=== PATIENT | female | born 1955 | race Caucasian/White ===

== ENCOUNTER → 2017-05-12 | Outpatient (CLI) | payer BC ==
[~2017-05-12] MED LIST: ASPIRIN 32325 MG/TAB PO; ASPIRIN 81M81 MG/TA2 PO; ASPIRIN E.C. 8181 MG PO; BYSTOLIC5 MG PO; CRESTOR 10MG10 MG PO; DIABETA 5MG5 MG/TAB PO; EFFIENT10 MG PO; FLAX SEED OIL1000 MG PO; GLIPIZIDE XL5 MG PO; GLUCOVANCE 2.51 TAB PO; HCTZ; JANUVIA25 MG PO; JANUVIA50 MG PO; LEVOTHROID0.025 MG PO; LEVOXYL0.1 MG PO; LOPRESSOR 225 MG/TAB PO; MECLIZINE25 MG PO; METFORMIN500 MG PO; NITROSTAT0.4 MG/TAB SL; NORCO 325 MG-51 TAB PO; PLAVIX 75MG TAB75 MG PO; PRILOTC PO; SYNTHROID0.075 MG/T PO; ULTRAM 50MG TAB50 MG PO; VALIUM 2MG T2 MG/TAB PO; XANAX 0.5MG0.5 MG PO; ZOFRAN 4MG T4 MG/TAB PO
== END ==
LOC: MC.RAD 10:20
DX: Z12.31 Encounter for screening mammogram for malignant neoplasm of breast (principal)

== ENCOUNTER 2017-06-06 15:45 | Outpatient (RCR) | payer BC ==
[2017-06-10] MEDS ORDERED: GLUCOVANCE 2.51 TAB PO (07:01)
[2017-06-10] MEDS ORDERED: JANUVIA50 MG PO (07:02)
[2017-06-10] MEDS ORDERED: MAGNESIUM250 M1 PO (07:02)
[2017-06-10] MEDS ORDERED: SYNTHROID0.075 MG/T PO (07:02)
[2017-06-10] MEDS ORDERED: MULTI VITAMINS1 TAB PO (07:03)
[2017-06-10] MEDS ORDERED: ASPIRIN 81M81 MG/TA2 PO (07:04)
[2017-06-10] MEDS ORDERED: XANAX .25M0.25 MG/TA PO (07:04)
[2017-06-10] MEDS ORDERED: VITAMINE200 PO (07:04)
[2017-06-10] MEDS ORDERED: BYSTOLIC5 MG PO (07:05)
[2017-06-10] MEDS ORDERED: LIPITOR 10MG10 MG PO (07:05)
[2017-06-10] MEDS ORDERED: PLAVIX 75MG TAB75 MG PO (07:06)
[2017-06-10] MEDS ORDERED: FLAX OIL1000 MG PO (07:06)
== END 2017-08-18 ==
LOC: MKS.ESL.PT
DX: M54.5 Low back pain (principal); Z98.890 Other specified postprocedural states

== ENCOUNTER 2017-06-10 06:01 | Day surgery (SDC) | payer BC ==
[~2017-06-10] VITALS: Ht 160 cm; Wt 68.8 kg
[2017-06-10 06:51] VITALS: BP 144/55; PULSE 54; TEMP 97.8
[2017-06-10] MEDS ORDERED: GLUCOVANCE 2.51 TAB PO (07:01)
[2017-06-10] MEDS ORDERED: SYNTHROID0.075 MG/T PO (07:02)
[2017-06-10] MEDS ORDERED: MAGNESIUM250 M1 PO (07:02)
[2017-06-10] MEDS ORDERED: JANUVIA50 MG PO (07:02)
[2017-06-10] MEDS ORDERED: MULTI VITAMINS1 TAB PO (07:03)
[2017-06-10] MEDS ORDERED: VITAMINE200 PO (07:04)
[2017-06-10] MEDS ORDERED: XANAX .25M0.25 MG/TA PO (07:04)
[2017-06-10] MEDS ORDERED: ASPIRIN 81M81 MG/TA2 PO (07:04)
[2017-06-10] MEDS ORDERED: BYSTOLIC5 MG PO (07:05)
[2017-06-10] MEDS ORDERED: LIPITOR 10MG10 MG PO (07:05)
[2017-06-10] MEDS ORDERED: PLAVIX 75MG TAB75 MG PO (07:06)
[2017-06-10] MEDS ORDERED: FLAX OIL1000 MG PO (07:06)
[2017-06-10 07:40] VITALS: BP 142/72; PULSE 66; TEMP 97.6
[2017-06-10 07:45] VITALS: BP 141/66; PULSE 64
[2017-06-10 08:00] VITALS: BP 136/82; PULSE 60
[2017-06-10 08:15] VITALS: BP 127/61; PULSE 55
== END 2017-06-10 08:25 | disposition home or self-care (01) ==
LOC: SDCO 06:01
DX: Z12.11 Encounter for screening for malignant neoplasm of colon (principal); E11.9 Type 2 diabetes mellitus without complications; I10 Essential (primary) hypertension; E03.9 Hypothyroidism, unspecified; K75.81 Nonalcoholic steatohepatitis (NASH); Z90.710 Acquired absence of both cervix and uterus
CPT/HCPCS: J2250; J3010; J7042

== ENCOUNTER → 2018-02-14 | Outpatient (CLI) | payer BC ==
[~2018-02-14] MED LIST changes: +CARAFATE 1GM1 G PO; +FLAX OIL1000 MG PO; +LEXAPRO 5MG5 MG PO; +LIPITOR20 MG PO; +MAGNESIUM ELEM300 MG PO; +MULTI VITAMINS1 TAB PO; +MYCOGEN CR 30GM TP; +PERCOCET 325 MG1 TA2 PO; +PROTONIX 40MG T40 MG PO; +VITAMINE200 PO; +XANAX .25M0.25 MG/TA PO
== END ==
LOC: COL.RAD 08:05
DX: K76.0 Fatty (change of) liver, not elsewhere classified (principal)

== ENCOUNTER 2018-02-15 02:05 | Emergency (ER) | payer BC ==
[~2018-02-15] VITALS: Ht 162.6 cm; Wt 67.7 kg
[~2018-02-15 02:05] MED LIST changes: -CARAFATE 1GM1 G PO; -LEXAPRO 5MG5 MG PO; -MYCOGEN CR 30GM TP; -PERCOCET 325 MG1 TA2 PO; -PROTONIX 40MG T40 MG PO
[2018-02-15 02:07] VITALS: TEMP 99.1
[2018-02-15] MEDS ORDERED: LEXAPRO 5MG5 MG PO (02:29)
[2018-02-15] MEDS ORDERED: MYCOGEN CR 30GM TP (02:31)
[2018-02-15 02:43] LABS: COLLECTION METHOD CLEAN CATCH
[2018-02-15 02:47] LABS: HEMATOCRIT 41.5 % (37.0-47.0); HEMOGLOBIN 13.4 g/dl (12.5-16.0); MEAN CELL VOLUME 83 fl (80.0-100.0); MEAN CORPUSCULAR HEMOGLOBIN 27 pg (27.0-31.0); MEAN CORPUSCULAR HGB CONC 32 g/dl (33.0-37.0); MEAN PLATELET VOLUME 10.3 fl (7.4-10.4); PLATELET COUNT 246 K/mm3 (130-400); RED BLOOD COUNT 5.01 M/mm3 (4.10-5.30); REDCELL DISTRIBUTION WIDTH-CV 13.6 % (11.5-14.5)
[2018-02-15] MEDS ORDERED: PROTONIX 40MG T40 MG PO (02:49)
[2018-02-15] MEDS ORDERED: CARAFATE 1GM1 G PO (02:49)
[2018-02-15 02:50] LABS: MUCOUS Present /lpf; PH 5 (5-8); SQUAMOUS EPITHELIAL 0-2 /hpf; URINE APPEARANCE Clear; URINE BACTERIA Rare /hpf; URINE BILIRUBIN Negative (NEGATIVE); URINE BLOOD Negative (NEGATIVE); URINE COLOR Yellow; URINE GLUCOSE Negative (NEGATIVE); URINE KETONE Negative (NEGATIVE); URINE LEUKOCYTE ESTERASE Negative (NEGATIVE); URINE NITRATE Negative (NEGATIVE); URINE PROTEIN(semi-quant) Negative (NEGATIVE); URINE RBC 0-2 /hpf; URINE UROBILINOGEN Negative (NEGATIVE)
[2018-02-15 03:00] LABS: ALANINE AMINOTRANSFERASE 25 U/L (9-52); ALBUMIN 3.8 gm/dL (3.5-5.0); ALKALINE PHOSPHATASE 69 U/L (50-136); ANION GAP 10 mmol/L (7-16); AST,SGOT 25 U/L (15-37); BILIRUBIN,TOTAL 0.5 mg/dL (0.0-1.0); BLOOD UREA NITROGEN 10 mg/dL (7-17); C-REACTIVE PROTEIN 0.7 mg/dL (0.0-0.9); CALCIUM 9.3 mg/dL (8.4-10.2); CARBON DIOXIDE 26 mmol/L (22-30); CHLORIDE 102 mmol/L (98-107); CREATININE, serum 0.54 mg/dL (0.52-1.25); GLUCOSE 185 mg/dL (74-106); LIPASE 188 U/L (23-300); MAGNESIUM 1.8 mg/dL (1.6-2.3); PHOSPHOROUS 3.6 mg/dL (2.5-4.5); SODIUM 138 mmol/L (137-145); TOTAL PROTEIN 6.8 gm/dL (6.4-8.2)
[2018-02-15 03:13] LABS: TROPONIN-I < 0.012 ng/mL (0.000-0.034)
[2018-02-15 03:19] LABS: BAND 5 % (0-10); EOSINOPHIL 9 % (0-4); LYMPHOCYTE 23 % (20.0-51.0); NEUTROPHILS 58 % (42.0-75.2); PLATELET ESTIMATE NORMAL (NORMAL)
[2018-02-15] MEDS ORDERED: PERCOCET 325 MG1 TA2 PO (04:29)
[2018-02-15 04:42] VITALS: BP 188/78; PULSE 54
== END 2018-02-15 04:46 | disposition home or self-care (01) ==
LOC: COL.ER 02:05
PROVIDERS: Emergency Medicine
DX: R10.13 Epigastric pain (principal); I25.10 Atherosclerotic heart disease of native coronary artery without angina pectoris; E11.9 Type 2 diabetes mellitus without complications; I10 Essential (primary) hypertension; E78.5 Hyperlipidemia, unspecified; Z95.5 Presence of coronary angioplasty implant and graft; Z90.710 Acquired absence of both cervix and uterus; Z79.84 Long term (current) use of oral hypoglycemic drugs; Z79.82 Long term (current) use of aspirin
CPT/HCPCS: J2405; J7030; Q9967

== ENCOUNTER 2018-02-17 10:47 | Day surgery (SDC) | payer BC ==
[~2018-02-17] VITALS: Ht 160 cm; Wt 67.0 kg
[~2018-02-17 10:47] MED LIST changes: +CARAFATE 1GM1 G PO; +LEXAPRO 5MG5 MG PO; +MYCOGEN CR 30GM TP; +PERCOCET 325 MG1 TA2 PO; +PROTONIX 40MG T40 MG PO
[2018-02-17] MEDS ORDERED: PERCOCET 325 MG1 TA2 PO (11:40)
[2018-02-17] MEDS ORDERED: ASPIRIN 81M81 MG/TA2 PO (11:46)
[2018-02-17 11:49] VITALS: BP 141/64; PULSE 50; TEMP 98.4
[2018-02-17 12:48] VITALS: BP 123/58; PULSE 54; TEMP 98.3
[2018-02-17 13:00] VITALS: BP 127/67; PULSE 55
[2018-02-17 13:15] VITALS: BP 120/55; PULSE 57
[2018-02-17] MEDS ORDERED: CARAFATE 1GM1 G PO (13:28)
[2018-02-17 13:30] VITALS: BP 113/49; PULSE 50
[2018-02-17 13:47] VITALS: BP 135/67; PULSE 53
== END 2018-02-17 13:50 | disposition home or self-care (01) ==
LOC: SDCO 10:47
DX: K21.9 Gastro-esophageal reflux disease without esophagitis (principal); K44.9 Diaphragmatic hernia without obstruction or gangrene; K29.30 Chronic superficial gastritis without bleeding; E11.9 Type 2 diabetes mellitus without complications; I10 Essential (primary) hypertension; E03.9 Hypothyroidism, unspecified; K75.81 Nonalcoholic steatohepatitis (NASH); Z90.710 Acquired absence of both cervix and uterus; Z88.0 Allergy status to penicillin; Z88.6 Allergy status to analgesic agent; Z79.84 Long term (current) use of oral hypoglycemic drugs
CPT/HCPCS: J2250; J3010; J7030

== ENCOUNTER → 2019-02-06 | Outpatient (CLI) | payer BC | LOC: MC.RAD 15:53 | DX: Z12.31 Encounter for screening mammogram for malignant neoplasm of breast (principal) ==

== ENCOUNTER → 2020-07-28 | Outpatient (CLI) | payer BC | LOC: COL.RAD 13:00 | DX: J34.1 Cyst and mucocele of nose and nasal sinus (principal) ==

== ENCOUNTER 2021-03-24 10:24 | Emergency (ER) | payer BC, OTHER ==
[~2021-03-24] VITALS: Ht 162.6 cm; Wt 60.9 kg
[2021-03-24 10:26] VITALS: TEMP 97.8
[2021-03-24] MEDS ORDERED: PERCOCET 325 MG1 TA2 PO ×2 (11:51→11:53)
[2021-03-24 12:10] VITALS: BP 130/81; PULSE 80
== END 2021-03-24 12:15 | disposition home or self-care (01) ==
LOC: COL.ER 10:24
DX: S16.1XXA Strain of muscle, fascia and tendon at neck level, initial encounter (principal); M25.512 Pain in left shoulder; G89.29 Other chronic pain; M54.5 Low back pain; Z88.6 Allergy status to analgesic agent; Z79.891 Long term (current) use of opiate analgesic; V89.2XXA Person injured in unspecified motor-vehicle accident, traffic, initial encounter

== ENCOUNTER → 2021-05-27 | Outpatient (CLI) | payer BC | LOC: MC.RAD 04-09 10:45 | DX: Z12.31 Encounter for screening mammogram for malignant neoplasm of breast (principal) ==

== ENCOUNTER 2021-09-12 19:26 | Emergency (ER) | payer BC ==
[2021-09-12 19:34] VITALS: TEMP 97.6
[2021-09-12] MEDS ORDERED: LOPRESSOR 225 MG/TAB PO (19:47)
[2021-09-12 20:27] LABS: BASO # 0.1 K/mm3 (0.0-0.2); EOS # 0.2 K/mm3 (0.0-0.7); EOS % 2.7 % (0.0-4.0); HEMATOCRIT 40.5 % (37.0-47.0); HEMOGLOBIN 13.1 g/dl (12.5-16.0); LYMPH % 34.8 % (20.0-51.0); MEAN CELL VOLUME 86 fl (80.0-100.0); MEAN CORPUSCULAR HEMOGLOBIN 28 pg (27-31); MEAN CORPUSCULAR HGB CONC 32 g/dl (33.0-37.0); MEAN PLATELET VOLUME 10.3 fl (7.4-10.4); MONO # 0.5 K/mm3 (0.1-0.6); MONO % 9.3 % (1.7-9.3); PLATELET COUNT 229 K/mm3 (130-400); RED BLOOD COUNT 4.71 M/mm3 (4.10-5.30); REDCELL DISTRIBUTION WIDTH-CV 13.3 % (11.5-14.5)
[2021-09-12 20:48] LABS: ALANINE AMINOTRANSFERASE 15 U/L (0-55); ALBUMIN 3.9 gm/dL (3.4-4.8); ALKALINE PHOSPHATASE 70 U/L (40-150); ANION GAP 9 mmol/L (7-16); AST,SGOT 23 U/L (5-34); BILIRUBIN,TOTAL 0.4 mg/dL (0.2-1.2); BLOOD UREA NITROGEN 9 mg/dL (10-20); C-REACTIVE PROTEIN 0.07 mg/dL (0.00-0.50); CALCIUM 9.3 mg/dL (8.4-10.2); CARBON DIOXIDE 25 mmol/L (23-31); CHLORIDE 106 mmol/L (98-107); CREATININE, serum 0.66 mg/dL (0.57-1.11); GLUCOSE 119 mg/dL (70-99); POTASSIUM 3.9 mmol/L (3.5-4.5); SODIUM 140 mmol/L (136-145)
[2021-09-12 20:56] LABS: TROPONIN-I < 0.010 ng/mL (0.00-0.033)
[2021-09-12] MEDS ORDERED: ANTIVERT 25MG25 MG PO (21:23)
[2021-09-12] MEDS ORDERED: PROMETHAZINE12.5 M5 PO (21:23)
[2021-09-12 21:47] VITALS: BP 143/80; PULSE 61
== END 2021-09-12 21:47 | disposition home or self-care (01) ==
LOC: COL.ER 19:26
PROVIDERS: Emergency Medicine
DX: R42 Dizziness and giddiness (principal); R11.2 Nausea with vomiting, unspecified; R00.1 Bradycardia, unspecified; I10 Essential (primary) hypertension; E11.9 Type 2 diabetes mellitus without complications; F41.9 Anxiety disorder, unspecified; Z79.899 Other long term (current) drug therapy
CPT/HCPCS: J2550; J7030